=== PATIENT | male | born 1950 | race African-American/Black ===

== ENCOUNTER 2022-01-20 21:04 | Emergency (ER) | payer MEDICARE, OTHER ==
[2022-01-20 21:15] LABS: #Basophils 0.1 thou/uL (0.0-0.2); #Eosinphils 0.1 thou/uL (0.0-0.7); #Monocytes 0.6 thou/uL (0.11-0.59); #Neutrophils 3.2 thou/uL (1.40-6.50); %Basophils 1.4 % (0.0-1.0); %Eosinophils 1.6 % (0.0-10.0); %Lymphocytes 33.1 % (21.0-51.0); %Monocytes 9.5 % (0.0-10.0); %Neutrophils 54.4 % (42.0-75.0); Hemoglobin 13.1 g/dL (14.0-18.0); Mean Corpuscular HGB CONC 32.4 g/dL (32.0-36.0); Mean Corpuscular Hemoglobin 32.6 pg (27.0-31.0); Mean Platelet Volume 7.4 fL (7.4-10.4); Platelet Count 222 10x3/uL (130-400); RBC Distribution Width 13.3 % (11.5-14.5); Red Blood Cell (RBC) Count 4.01 mill/uL (4.70-6.10)
[2022-01-20 21:24] LABS: Prothrombin Time 13.5 sec (12.0-14.7)
[2022-01-20 21:25] LABS: PTT 30.8 sec (22.9-36.1)
[2022-01-20 21:31] LABS: ALT (SGPT) 20 U/L (8-55); AST (SGOT) 30 U/L (5-34); Albumin 4.2 g/dL (3.4-4.8); Alkaline Phosphatase 105 U/L (40-110); Anion Gap 19 mmol/L (10-20); BUN (Urea Nitrogen) 42 mg/dL (8.4-25.7); Bilirubin, Total 0.2 mg/dL (0.2-1.2); Calc. Creatinine Clearance 0 mL/min (70-130); Calcium 9.3 mg/dL (7.8-10.44); Carbon Dioxide 17 mmol/L (23-31); Chloride 107 mmol/L (98-107); Estimated GFR 18; Globulin 3.8 g/dL (2.4-3.5); Glucose 87 mg/dL (83-110); Potassium 3.9 mmol/L (3.5-5.1); Sodium 139 mmol/L (136-145)
[2022-01-20 21:55] LABS: CKMB 11.6 ng/mL (0-6.6)
== END 2022-01-20 21:42 | disposition short-term general hospital (02) ==
LOC: NAV ERS 21:04
DX: I21.19 ST elevation (STEMI) myocardial infarction involving other coronary artery of inferior wall (principal); E11.9 Type 2 diabetes mellitus without complications; I10 Essential (primary) hypertension; Z86.73 Personal history of transient ischemic attack (TIA), and cerebral infarction without residual deficits
CPT/HCPCS: 36415; 71045; 80053; 80307; 82553; 83880; 84484; 85025; 85610; 85730; 93005; 94760; 96365; 96374; 96375

== ENCOUNTER 2022-02-16 15:57 | Inpatient (IN) | payer MEDICARE, MEDICAID ==
[2022-02-17] MEDS ORDERED: Ondansetron ODT 4 MG TAB SL PRN (13:09)
[2022-02-17] MEDS ORDERED: Mag-Al Plus 1200 MG/1200 MG/120 MG/30 ML UDCUP PO PRN (13:20)
[2022-02-17 17:15] LABS: SARS-CoV-2 NAA Rapid Test Not Detected (NotDetected)
[2022-02-17] MEDS: Carvedilol 6.25 MG TAB PO SCH (17:38)
[2022-02-17] MEDS ORDERED: Albuterol Sulfate 2.5 mg/3 ml Neb NEB SCH (19:00)
[2022-02-17] MEDS: Diltiazem HCl SR 90 mg Capsule PO SCH (20:48)
[2022-02-17] MEDS: Amitriptyline HCl 25 MG TAB PO SCH (20:50)
[2022-02-17] MEDS: Apixaban 5 MG TAB PO SCH (20:50)
[2022-02-17] MEDS: Atorvastatin Calcium 40 MG TAB PO SCH (20:51)
[2022-02-17] MEDS: Amiodarone 200 MG TAB PO SCH (20:51)
[2022-02-17] MEDS ORDERED: Famotidine 20 MG TAB PO SCH (21:00)
[2022-02-17] MEDS: Albuterol Sulfate 2.5 mg/3 ml Neb NEB SCH (23:50)
[2022-02-18] MEDS: Albuterol Sulfate 2.5 mg/3 ml Neb NEB SCH ×4 (05:18→23:17)
[2022-02-18 06:12] LABS: #Basophils 0.1 thou/uL (0.0-0.2); #Eosinphils 0.2 thou/uL (0.0-0.7); #Lymphocytes 0.8 thou/uL (1.20-3.40); #Monocytes 0.5 thou/uL (0.11-0.59); #Neutrophils 3.2 thou/uL (1.40-6.50); %Basophils 1.6 % (0.0-1.0); %Eosinophils 3.6 % (0.0-10.0); %Lymphocytes 15.9 % (21.0-51.0); %Neutrophils 67.9 % (42.0-75.0); Hemoglobin 7.5 g/dL (14.0-18.0); Mean Corpuscular HGB CONC 30.5 g/dL (32.0-36.0); Mean Corpuscular Volume 98.4 fl (78.0-98.0); Mean Platelet Volume 6.2 fL (7.4-10.4); Platelet Count 452 10x3/uL (130-400); RBC Distribution Width 14.9 % (11.5-14.5); Red Blood Cell (RBC) Count 2.49 mill/uL (4.70-6.10); White Blood Cell (WBC) Count 4.8 10x3/uL (4.8-10.8)
[2022-02-18 06:19] LABS: ALT (SGPT) Less than 6 U/L (8-55); AST (SGOT) 26 U/L (5-34); Albumin 2.8 g/dL (3.4-4.8); Alkaline Phosphatase 83 U/L (40-110); Anion Gap 15 mmol/L (10-20); BUN (Urea Nitrogen) 36 mg/dL (8.4-25.7); Bilirubin, Total 0.4 mg/dL (0.2-1.2); Calc. Creatinine Clearance 12 mL/min (70-130); Calcium 8.5 mg/dL (7.8-10.44); Carbon Dioxide 27 mmol/L (23-31); Chloride 97 mmol/L (98-107); Estimated GFR 7; Globulin 4.3 g/dL (2.4-3.5); Glucose 104 mg/dL (83-110); Protein, Total 7.1 g/dL (5.8-8.1); Sodium 135 mmol/L (136-145)
[2022-02-18] MEDS: Apixaban 5 MG TAB PO SCH ×2 (09:10→20:58)
[2022-02-18] MEDS: Ferrous Sulfate 325 MG TAB PO SCH (09:10)
[2022-02-18] MEDS: Tamsulosin HCl 0.4 MG CAP PO SCH (09:10)
[2022-02-18] MEDS: Aspirin Chewable 81 MG TAB PO SCH (09:10)
[2022-02-18] MEDS: Diltiazem HCl SR 90 mg Capsule PO SCH ×2 (09:11→20:59)
[2022-02-18] MEDS: Carvedilol 6.25 MG TAB PO SCH ×2 (09:11→20:56)
[2022-02-18] MEDS: Amiodarone 200 MG TAB PO SCH ×2 (09:11→20:58)
[2022-02-18] MEDS: Famotidine 20 MG TAB PO SCH (20:59)
[2022-02-18] MEDS: Atorvastatin Calcium 40 MG TAB PO SCH (20:59)
[2022-02-18] MEDS: Amitriptyline HCl 25 MG TAB PO SCH (21:02)
[2022-02-19 05:29] LABS: Hemoglobin 7.9 g/dL (14.0-18.0); Platelet Count 434 10x3/uL (130-400)
[2022-02-19] MEDS: Albuterol Sulfate 2.5 mg/3 ml Neb NEB SCH ×3 (05:58→17:36)
[2022-02-19] MEDS: Aspirin Chewable 81 MG TAB PO SCH (07:58)
[2022-02-19] MEDS: Tamsulosin HCl 0.4 MG CAP PO SCH (07:58)
[2022-02-19] MEDS: Diltiazem HCl SR 90 mg Capsule PO SCH ×2 (07:58→20:04)
[2022-02-19] MEDS: Apixaban 5 MG TAB PO SCH ×2 (07:58→20:05)
[2022-02-19] MEDS: Ferrous Sulfate 325 MG TAB PO SCH (07:58)
[2022-02-19] MEDS: Amiodarone 200 MG TAB PO SCH ×2 (07:58→20:05)
[2022-02-19] MEDS: Carvedilol 6.25 MG TAB PO SCH ×2 (07:58→16:40)
[2022-02-19] MEDS: guaiFENesin ER 600 MG TAB PO PRN (09:13)
[2022-02-19] MEDS: Atorvastatin Calcium 40 MG TAB PO SCH (20:05)
[2022-02-19] MEDS: Famotidine 20 MG TAB PO SCH (20:05)
[2022-02-19] MEDS: Amitriptyline HCl 25 MG TAB PO SCH (20:05)
[2022-02-20] MEDS: Albuterol Sulfate 2.5 mg/3 ml Neb NEB SCH ×5 (00:19→23:48)
[2022-02-20] MEDS ORDERED: EPOETIN ALFA-EPBX (ESRD) 10,000 UNIT/ML VIAL SC SCH (08:00)
[2022-02-20] MEDS: Aspirin Chewable 81 MG TAB PO SCH (08:03)
[2022-02-20] MEDS: Tamsulosin HCl 0.4 MG CAP PO SCH (08:03)
[2022-02-20] MEDS: Carvedilol 6.25 MG TAB PO SCH ×2 (08:03→17:01)
[2022-02-20] MEDS: Amiodarone 200 MG TAB PO SCH ×2 (08:03→21:11)
[2022-02-20] MEDS: Senokot S 8.6-50 MG TAB PO PRN ×2 (08:04→21:11)
[2022-02-20] MEDS: Diltiazem HCl SR 90 mg Capsule PO SCH ×2 (08:04→21:15)
[2022-02-20] MEDS: Ferrous Sulfate 325 MG TAB PO SCH (08:04)
[2022-02-20] MEDS: Apixaban 5 MG TAB PO SCH ×2 (08:04→21:12)
[2022-02-20] MEDS: EPOETIN ALFA-EPBX (NON-ESRD) 10,000 UNIT/ML VIAL SC SCH (08:06)
[2022-02-20] MEDS: Amitriptyline HCl 25 MG TAB PO SCH (21:11)
[2022-02-20] MEDS: Atorvastatin Calcium 40 MG TAB PO SCH (21:11)
[2022-02-20] MEDS: Famotidine 20 MG TAB PO SCH (21:12)
[2022-02-21] MEDS: Albuterol Sulfate 2.5 mg/3 ml Neb NEB SCH ×3 (05:18→17:51)
[2022-02-21] MEDS: Aspirin Chewable 81 MG TAB PO SCH (07:57)
[2022-02-21] MEDS: Tamsulosin HCl 0.4 MG CAP PO SCH (07:57)
[2022-02-21] MEDS: Diltiazem HCl SR 90 mg Capsule PO SCH ×2 (07:57→20:41)
[2022-02-21] MEDS: Carvedilol 6.25 MG TAB PO SCH ×2 (07:57→17:06)
[2022-02-21] MEDS: Bisacodyl 5 MG TAB PO PRN (07:57)
[2022-02-21] MEDS: Apixaban 5 MG TAB PO SCH ×2 (07:57→20:42)
[2022-02-21] MEDS: Ferrous Sulfate 325 MG TAB PO SCH (07:58)
[2022-02-21] MEDS: Amiodarone 200 MG TAB PO SCH ×2 (07:58→20:42)
[2022-02-21] MEDS: Amitriptyline HCl 25 MG TAB PO SCH (20:42)
[2022-02-21] MEDS: Famotidine 20 MG TAB PO SCH (20:42)
[2022-02-21] MEDS: Atorvastatin Calcium 40 MG TAB PO SCH (20:42)
[2022-02-22] MEDS: Albuterol Sulfate 2.5 mg/3 ml Neb NEB SCH ×5 (00:58→23:55)
[2022-02-22] MEDS: Ferrous Sulfate 325 MG TAB PO SCH (08:02)
[2022-02-22] MEDS: Tamsulosin HCl 0.4 MG CAP PO SCH (08:02)
[2022-02-22] MEDS: Amiodarone 200 MG TAB PO SCH ×2 (08:02→20:39)
[2022-02-22] MEDS: Diltiazem HCl SR 90 mg Capsule PO SCH ×2 (08:02→20:38)
[2022-02-22] MEDS: Aspirin Chewable 81 MG TAB PO SCH (08:03)
[2022-02-22] MEDS: Apixaban 5 MG TAB PO SCH ×2 (08:03→20:39)
[2022-02-22] MEDS: Carvedilol 6.25 MG TAB PO SCH ×2 (08:03→17:27)
[2022-02-22] MEDS: Acetaminophen 325 MG TAB PO PRN (09:48)
[2022-02-22] MEDS: Famotidine 20 MG TAB PO SCH (20:39)
[2022-02-22] MEDS: Atorvastatin Calcium 40 MG TAB PO SCH (20:39)
[2022-02-22] MEDS: Amitriptyline HCl 25 MG TAB PO SCH (20:39)
[2022-02-23] MEDS: Albuterol Sulfate 2.5 mg/3 ml Neb NEB SCH ×3 (05:26→16:21)
[2022-02-23] MEDS: Ferrous Sulfate 325 MG TAB PO SCH (08:11)
[2022-02-23] MEDS: Apixaban 5 MG TAB PO SCH ×2 (08:11→21:07)
[2022-02-23] MEDS: Diltiazem HCl SR 90 mg Capsule PO SCH ×3 (08:11→21:18)
[2022-02-23] MEDS: Aspirin Chewable 81 MG TAB PO SCH (08:11)
[2022-02-23] MEDS: Carvedilol 6.25 MG TAB PO SCH ×2 (08:12→16:20)
[2022-02-23] MEDS: Tamsulosin HCl 0.4 MG CAP PO SCH (08:12)
[2022-02-23] MEDS: Amiodarone 200 MG TAB PO SCH ×2 (08:12→21:07)
[2022-02-23] MEDS: Famotidine 20 MG TAB PO SCH (21:07)
[2022-02-23] MEDS: Amitriptyline HCl 25 MG TAB PO SCH (21:07)
[2022-02-23] MEDS: Atorvastatin Calcium 40 MG TAB PO SCH (21:07)
[2022-02-24] MEDS: Albuterol Sulfate 2.5 mg/3 ml Neb NEB SCH ×4 (00:40→17:54)
[2022-02-24] MEDS: Ferrous Sulfate 325 MG TAB PO SCH (08:52)
[2022-02-24] MEDS: Carvedilol 6.25 MG TAB PO SCH ×2 (08:52→17:53)
[2022-02-24] MEDS: Aspirin Chewable 81 MG TAB PO SCH (08:52)
[2022-02-24] MEDS: Tamsulosin HCl 0.4 MG CAP PO SCH (08:52)
[2022-02-24] MEDS: Amiodarone 200 MG TAB PO SCH ×2 (08:52→21:20)
[2022-02-24] MEDS: Apixaban 5 MG TAB PO SCH ×2 (08:52→21:20)
[2022-02-24] MEDS: Diltiazem HCl SR 90 mg Capsule PO SCH ×2 (08:54→21:20)
[2022-02-24] MEDS: Famotidine 20 MG TAB PO SCH (21:20)
[2022-02-24] MEDS: Atorvastatin Calcium 40 MG TAB PO SCH (21:20)
[2022-02-24] MEDS: Amitriptyline HCl 25 MG TAB PO SCH (21:20)
[2022-02-25] MEDS: Albuterol Sulfate 2.5 mg/3 ml Neb NEB SCH ×4 (00:01→19:10)
[2022-02-25] MEDS: Carvedilol 6.25 MG TAB PO SCH ×2 (08:25→19:09)
[2022-02-25] MEDS: Diltiazem HCl SR 90 mg Capsule PO SCH (08:26)
[2022-02-25] MEDS: Aspirin Chewable 81 MG TAB PO SCH (08:26)
[2022-02-25] MEDS: Tamsulosin HCl 0.4 MG CAP PO SCH (08:26)
[2022-02-25] MEDS: Amiodarone 200 MG TAB PO SCH ×2 (08:26→22:12)
[2022-02-25] MEDS: Ferrous Sulfate 325 MG TAB PO SCH (08:26)
[2022-02-25] MEDS: Apixaban 5 MG TAB PO SCH ×2 (08:26→22:12)
[2022-02-25] MEDS: Atorvastatin Calcium 40 MG TAB PO SCH (22:12)
[2022-02-25] MEDS: Famotidine 20 MG TAB PO SCH (22:12)
[2022-02-25] MEDS: Amitriptyline HCl 25 MG TAB PO SCH (22:12)
[2022-02-26] MEDS: Albuterol Sulfate 2.5 mg/3 ml Neb NEB SCH ×5 (00:45→23:51)
[2022-02-26] MEDS: Diltiazem HCl SR 90 mg Capsule PO SCH ×3 (00:52→21:06)
[2022-02-26 05:35] LABS: #Basophils 0.1 thou/uL (0.0-0.2); #Eosinphils 0.1 thou/uL (0.0-0.7); #Monocytes 0.6 thou/uL (0.11-0.59); #Neutrophils 3.2 thou/uL (1.40-6.50); %Basophils 1.3 % (0.0-1.0); %Eosinophils 1.2 % (0.0-10.0); %Lymphocytes 20.3 % (21.0-51.0); %Monocytes 12.2 % (0.0-10.0); Hemoglobin 6.9 g/dL (14.0-18.0); Mean Corpuscular HGB CONC 30.5 g/dL (32.0-36.0); Mean Corpuscular Hemoglobin 30.8 pg (27.0-31.0); Mean Platelet Volume 6.5 fL (7.4-10.4); Platelet Count 359 10x3/uL (130-400); RBC Distribution Width 16.6 % (11.5-14.5); Red Blood Cell (RBC) Count 2.25 mill/uL (4.70-6.10); White Blood Cell (WBC) Count 4.9 10x3/uL (4.8-10.8)
[2022-02-26 05:48] LABS: Anion Gap 16 mmol/L (10-20); BUN (Urea Nitrogen) 17 mg/dL (8.4-25.7); Calc. Creatinine Clearance 20 mL/min (70-130); Calcium 8.5 mg/dL (7.8-10.44); Carbon Dioxide 31 mmol/L (23-31); Chloride 96 mmol/L (98-107); Estimated GFR 12; Glucose 87 mg/dL (83-110); Potassium 3.6 mmol/L (3.5-5.1); Sodium 139 mmol/L (136-145)
[2022-02-26] MEDS: Ferrous Sulfate 325 MG TAB PO SCH (08:01)
[2022-02-26] MEDS: Apixaban 5 MG TAB PO SCH ×2 (08:01→21:06)
[2022-02-26] MEDS: Aspirin Chewable 81 MG TAB PO SCH (08:01)
[2022-02-26] MEDS: Tamsulosin HCl 0.4 MG CAP PO SCH (08:02)
[2022-02-26] MEDS: Amiodarone 200 MG TAB PO SCH ×2 (08:02→21:06)
[2022-02-26] MEDS: Carvedilol 6.25 MG TAB PO SCH ×2 (08:02→17:06)
[2022-02-26 18:19] LABS: Hemoglobin 7.7 g/dL (14.0-18.0)
[2022-02-26] MEDS: Atorvastatin Calcium 40 MG TAB PO SCH (21:06)
[2022-02-26] MEDS: Amitriptyline HCl 25 MG TAB PO SCH (21:06)
[2022-02-26] MEDS: Famotidine 20 MG TAB PO SCH (21:06)
[2022-02-27] MEDS: Albuterol Sulfate 2.5 mg/3 ml Neb NEB SCH ×4 (05:15→23:16)
[2022-02-27 05:56] LABS: Hemoglobin 7.8 g/dL (14.0-18.0); Platelet Count 319 10x3/uL (130-400)
[2022-02-27 06:03] LABS: Anion Gap 16 mmol/L (10-20); BUN (Urea Nitrogen) 28 mg/dL (8.4-25.7); Calc. Creatinine Clearance 14 mL/min (70-130); Calcium 8.5 mg/dL (7.8-10.44); Carbon Dioxide 29 mmol/L (23-31); Chloride 93 mmol/L (98-107); Estimated GFR 8; Glucose 94 mg/dL (83-110); Potassium 3.6 mmol/L (3.5-5.1); Sodium 134 mmol/L (136-145)
[2022-02-27] MEDS: Amiodarone 200 MG TAB PO SCH ×2 (08:08→22:01)
[2022-02-27] MEDS: Ferrous Sulfate 325 MG TAB PO SCH (08:09)
[2022-02-27] MEDS: Diltiazem HCl SR 90 mg Capsule PO SCH ×2 (08:09→22:01)
[2022-02-27] MEDS: Tamsulosin HCl 0.4 MG CAP PO SCH (08:09)
[2022-02-27] MEDS: Apixaban 5 MG TAB PO SCH ×2 (08:09→22:01)
[2022-02-27] MEDS: Aspirin Chewable 81 MG TAB PO SCH (08:09)
[2022-02-27] MEDS: Carvedilol 6.25 MG TAB PO SCH ×2 (08:09→17:28)
[2022-02-27] MEDS: EPOETIN ALFA-EPBX (NON-ESRD) 10,000 UNIT/ML VIAL SC SCH (13:13)
[2022-02-27] MEDS: Amitriptyline HCl 25 MG TAB PO SCH (22:00)
[2022-02-27] MEDS: Atorvastatin Calcium 40 MG TAB PO SCH (22:01)
[2022-02-27] MEDS: Famotidine 20 MG TAB PO SCH (22:01)
[2022-02-28] MEDS ORDERED: Albuterol Sulfate 2.5 mg/3 ml Neb NEB SCH (03:45)
[2022-02-28] MEDS: Albuterol Sulfate 2.5 mg/3 ml Neb NEB SCH ×3 (06:38→20:00)
[2022-02-28] MEDS: Carvedilol 6.25 MG TAB PO SCH ×2 (10:08→17:32)
[2022-02-28] MEDS: Tamsulosin HCl 0.4 MG CAP PO SCH (10:08)
[2022-02-28] MEDS: Apixaban 5 MG TAB PO SCH ×2 (10:08→21:39)
[2022-02-28] MEDS: Aspirin Chewable 81 MG TAB PO SCH (10:08)
[2022-02-28] MEDS: Diltiazem HCl SR 90 mg Capsule PO SCH ×2 (10:08→21:42)
[2022-02-28] MEDS: Ferrous Sulfate 325 MG TAB PO SCH (10:09)
[2022-02-28] MEDS: Amiodarone 200 MG TAB PO SCH ×2 (10:09→21:42)
[2022-02-28] MEDS: Atorvastatin Calcium 40 MG TAB PO SCH (21:39)
[2022-02-28] MEDS: Famotidine 20 MG TAB PO SCH (21:39)
[2022-02-28] MEDS: Amitriptyline HCl 25 MG TAB PO SCH (21:39)
[2022-02-28] MEDS: guaiFENesin ER 600 MG TAB PO PRN (21:39)
[2022-03-01] MEDS: Albuterol Sulfate 2.5 mg/3 ml Neb NEB SCH ×4 (00:04→17:28)
[2022-03-01] MEDS ORDERED: Albuterol Sulfate 2.5 mg/3 ml Neb NEB SCH (04:00)
[2022-03-01] MEDS: Senokot S 8.6-50 MG TAB PO PRN (04:40)
[2022-03-01] MEDS: Ferrous Sulfate 325 MG TAB PO SCH (07:50)
[2022-03-01] MEDS: Apixaban 5 MG TAB PO SCH ×2 (07:50→20:19)
[2022-03-01] MEDS: Amiodarone 200 MG TAB PO SCH ×2 (07:50→20:20)
[2022-03-01] MEDS: Tamsulosin HCl 0.4 MG CAP PO SCH (07:50)
[2022-03-01] MEDS: Carvedilol 6.25 MG TAB PO SCH ×2 (07:50→17:28)
[2022-03-01] MEDS: Aspirin Chewable 81 MG TAB PO SCH (07:50)
[2022-03-01] MEDS: Diltiazem HCl SR 90 mg Capsule PO SCH ×2 (07:51→20:19)
[2022-03-01] MEDS: Bisacodyl 5 MG TAB PO PRN (17:28)
[2022-03-01] MEDS ORDERED: Albuterol Sulfate 2.5 mg/3 ml Neb ONE (20:17)
[2022-03-01] MEDS ORDERED: Albuterol Sulfate 2.5 mg/3 ml Neb NEB PRN (20:19)
[2022-03-01] MEDS: Amitriptyline HCl 25 MG TAB PO SCH (20:20)
[2022-03-01] MEDS: Famotidine 20 MG TAB PO SCH (20:20)
[2022-03-01] MEDS: Atorvastatin Calcium 40 MG TAB PO SCH (20:20)
[2022-03-02] MEDS: Albuterol Sulfate 2.5 mg/3 ml Neb NEB SCH ×4 (00:15→18:22)
[2022-03-02 06:03] LABS: #Basophils 0.1 thou/uL (0.0-0.2); #Eosinphils 0.1 thou/uL (0.0-0.7); #Lymphocytes 0.9 thou/uL (1.20-3.40); #Monocytes 0.6 thou/uL (0.11-0.59); #Neutrophils 3.5 thou/uL (1.40-6.50); %Basophils 1.1 % (0.0-1.0); %Eosinophils 2.1 % (0.0-10.0); %Monocytes 10.9 % (0.0-10.0); %Neutrophils 68.9 % (42.0-75.0); Mean Corpuscular HGB CONC 30.7 g/dL (32.0-36.0); Mean Corpuscular Hemoglobin 30.7 pg (27.0-31.0); Mean Corpuscular Volume 99.9 fl (78.0-98.0); Mean Platelet Volume 6.5 fL (7.4-10.4); Platelet Count 254 10x3/uL (130-400); Red Blood Cell (RBC) Count 2.61 mill/uL (4.70-6.10); White Blood Cell (WBC) Count 5.1 10x3/uL (4.8-10.8)
[2022-03-02 06:17] LABS: Anion Gap 17 mmol/L (10-20); BUN (Urea Nitrogen) 32 mg/dL (8.4-25.7); Calc. Creatinine Clearance 14 mL/min (70-130); Calcium 8.3 mg/dL (7.8-10.44); Carbon Dioxide 28 mmol/L (23-31); Chloride 95 mmol/L (98-107); Estimated GFR 8; Glucose 86 mg/dL (83-110); Potassium 3.8 mmol/L (3.5-5.1); Sodium 136 mmol/L (136-145)
[2022-03-02] MEDS: Carvedilol 6.25 MG TAB PO SCH ×2 (07:52→18:22)
[2022-03-02] MEDS: Ferrous Sulfate 325 MG TAB PO SCH (07:52)
[2022-03-02] MEDS: Aspirin Chewable 81 MG TAB PO SCH (07:52)
[2022-03-02] MEDS: Diltiazem HCl SR 90 mg Capsule PO SCH ×2 (07:52→21:58)
[2022-03-02] MEDS: Tamsulosin HCl 0.4 MG CAP PO SCH (07:52)
[2022-03-02] MEDS: Apixaban 5 MG TAB PO SCH ×2 (07:52→21:58)
[2022-03-02] MEDS: Amiodarone 200 MG TAB PO SCH ×2 (07:53→21:58)
[2022-03-02] MEDS: Acetaminophen 325 MG TAB PO PRN (12:58)
[2022-03-02] MEDS ORDERED: cloNIDine 0.1 MG TAB PO PRN (20:31)
[2022-03-02] MEDS: predniSONE 20 MG TAB PO SCH (21:58)
[2022-03-02] MEDS: Atorvastatin Calcium 40 MG TAB PO SCH (21:58)
[2022-03-02] MEDS: Famotidine 20 MG TAB PO SCH (21:58)
[2022-03-02] MEDS: Amitriptyline HCl 25 MG TAB PO SCH (21:58)
[2022-03-03] MEDS: Albuterol Sulfate 2.5 mg/3 ml Neb NEB SCH ×4 (00:43→16:33)
[2022-03-03] MEDS: Carvedilol 6.25 MG TAB PO SCH ×2 (11:42→16:34)
[2022-03-03] MEDS: Diltiazem HCl SR 90 mg Capsule PO SCH ×2 (11:43→20:56)
[2022-03-03] MEDS: Ferrous Sulfate 325 MG TAB PO SCH (11:43)
[2022-03-03] MEDS: Aspirin Chewable 81 MG TAB PO SCH (11:43)
[2022-03-03] MEDS: predniSONE 20 MG TAB PO SCH ×2 (11:43→20:56)
[2022-03-03] MEDS: Amiodarone 200 MG TAB PO SCH ×2 (11:43→20:56)
[2022-03-03] MEDS: Apixaban 5 MG TAB PO SCH ×2 (11:43→20:56)
[2022-03-03] MEDS: Tamsulosin HCl 0.4 MG CAP PO SCH (11:44)
[2022-03-03] MEDS: Amitriptyline HCl 25 MG TAB PO SCH (20:56)
[2022-03-03] MEDS: Famotidine 20 MG TAB PO SCH (20:56)
[2022-03-03] MEDS: Atorvastatin Calcium 40 MG TAB PO SCH (20:56)
[2022-03-04] MEDS: Albuterol Sulfate 2.5 mg/3 ml Neb NEB SCH ×5 (00:06→23:38)
[2022-03-04] MEDS: Ferrous Sulfate 325 MG TAB PO SCH (08:48)
[2022-03-04] MEDS: Apixaban 5 MG TAB PO SCH ×2 (08:48→20:47)
[2022-03-04] MEDS: Tamsulosin HCl 0.4 MG CAP PO SCH (08:48)
[2022-03-04] MEDS: Carvedilol 6.25 MG TAB PO SCH ×2 (08:48→16:53)
[2022-03-04] MEDS: Aspirin Chewable 81 MG TAB PO SCH (08:48)
[2022-03-04] MEDS: predniSONE 20 MG TAB PO SCH ×2 (08:49→20:47)
[2022-03-04] MEDS: Diltiazem HCl SR 90 mg Capsule PO SCH ×2 (08:49→20:47)
[2022-03-04] MEDS: Amiodarone 200 MG TAB PO SCH ×2 (08:49→20:47)
[2022-03-04] MEDS: Famotidine 20 MG TAB PO SCH (20:47)
[2022-03-04] MEDS: Amitriptyline HCl 25 MG TAB PO SCH (20:47)
[2022-03-04] MEDS: Atorvastatin Calcium 40 MG TAB PO SCH (20:47)
[2022-03-05 05:44] LABS: #Lymphocytes 0.5 thou/uL (1.20-3.40); #Monocytes 0.3 thou/uL (0.11-0.59); #Neutrophils 2.3 thou/uL (1.40-6.50); %Basophils 0.5 % (0.0-1.0); %Lymphocytes 15.2 % (21.0-51.0); %Monocytes 10.6 % (0.0-10.0); %Neutrophils 73.7 % (42.0-75.0); Hemoglobin 8.2 g/dL (14.0-18.0); Mean Corpuscular HGB CONC 30.6 g/dL (32.0-36.0); Mean Corpuscular Hemoglobin 30.3 pg (27.0-31.0); Mean Platelet Volume 6.1 fL (7.4-10.4); Platelet Count 239 10x3/uL (130-400); RBC Distribution Width 17.1 % (11.5-14.5); Red Blood Cell (RBC) Count 2.71 mill/uL (4.70-6.10); White Blood Cell (WBC) Count 3.1 10x3/uL (4.8-10.8)
[2022-03-05] MEDS: Albuterol Sulfate 2.5 mg/3 ml Neb NEB SCH ×3 (05:51→18:27)
[2022-03-05 05:58] VITALS: BMI 30.6
[2022-03-05 06:01] LABS: Anion Gap 15 mmol/L (10-20); BUN (Urea Nitrogen) 25 mg/dL (8.4-25.7); Calc. Creatinine Clearance 20 mL/min (70-130); Calcium 8.6 mg/dL (7.8-10.44); Carbon Dioxide 31 mmol/L (23-31); Chloride 97 mmol/L (98-107); Estimated GFR 13; Glucose 104 mg/dL (83-110); Potassium 3.5 mmol/L (3.5-5.1); Sodium 139 mmol/L (136-145)
[2022-03-05] MEDS: Ferrous Sulfate 325 MG TAB PO SCH (08:24)
[2022-03-05] MEDS: Carvedilol 6.25 MG TAB PO SCH ×2 (08:24→16:58)
[2022-03-05] MEDS: Amiodarone 200 MG TAB PO SCH ×2 (08:26→20:40)
[2022-03-05] MEDS: Apixaban 5 MG TAB PO SCH ×2 (08:27→20:40)
[2022-03-05] MEDS: Diltiazem HCl SR 90 mg Capsule PO SCH ×2 (08:27→20:41)
[2022-03-05] MEDS: Aspirin Chewable 81 MG TAB PO SCH (08:27)
[2022-03-05] MEDS: predniSONE 20 MG TAB PO SCH ×2 (08:27→20:40)
[2022-03-05] MEDS: Tamsulosin HCl 0.4 MG CAP PO SCH (08:28)
[2022-03-05] MEDS ORDERED: Acetaminophen 325 MG TAB PO PRN (13:07)
[2022-03-05] MEDS: Atorvastatin Calcium 40 MG TAB PO SCH (20:40)
[2022-03-05] MEDS: Amitriptyline HCl 25 MG TAB PO SCH (20:40)
[2022-03-05] MEDS: Famotidine 20 MG TAB PO SCH (20:41)
[2022-03-06] MEDS: Albuterol Sulfate 2.5 mg/3 ml Neb NEB SCH ×2 (00:59→05:32)
[2022-03-06 07:28] VITALS: BP 146/80; TEMP 97.6
[2022-03-06] MEDS: Diltiazem HCl SR 90 mg Capsule PO SCH (07:54)
[2022-03-06] MEDS: Tamsulosin HCl 0.4 MG CAP PO SCH (07:54)
[2022-03-06] MEDS: Aspirin Chewable 81 MG TAB PO SCH (07:54)
[2022-03-06] MEDS: Ferrous Sulfate 325 MG TAB PO SCH (07:55)
[2022-03-06] MEDS: Carvedilol 6.25 MG TAB PO SCH (07:55)
[2022-03-06] MEDS: Apixaban 5 MG TAB PO SCH (07:56)
[2022-03-06] MEDS: predniSONE 20 MG TAB PO SCH (07:56)
[2022-03-06] MEDS: Amiodarone 200 MG TAB PO SCH (07:56)
[2022-03-06] MEDS: EPOETIN ALFA-EPBX (NON-ESRD) 10,000 UNIT/ML VIAL SC SCH (08:00)
== END 2022-03-06 10:35 | disposition home or self-care (01) | DRG 947 ==
LOC: NAV ACUTE 02-17 10:58
PROVIDERS: ADMIT Family Medicine; ATTEND Family Medicine
PROC: 30233N1 Transfusion of Nonautologous Red Blood Cells into Peripheral Vein, Percutaneous Approach (ICD-10-PCS; principal; 2022-02-26)
DX: R53.81 Other malaise (principal); N18.6 End stage renal disease; J90 Pleural effusion, not elsewhere classified; I13.2 Hypertensive heart and chronic kidney disease with heart failure and with stage 5 chronic kidney disease, or end stage renal disease; I50.32 Chronic diastolic (congestive) heart failure; I25.10 Atherosclerotic heart disease of native coronary artery without angina pectoris; H91.90 Unspecified hearing loss, unspecified ear; I48.91 Unspecified atrial fibrillation; N40.0 Benign prostatic hyperplasia without lower urinary tract symptoms; R53.1 Weakness; D63.1 Anemia in chronic kidney disease; Z20.822 Contact with and (suspected) exposure to COVID-19; G47.00 Insomnia, unspecified; Z82.49 Family history of ischemic heart disease and other diseases of the circulatory system; Z86.73 Personal history of transient ischemic attack (TIA), and cerebral infarction without residual deficits; Z98.890 Other specified postprocedural states; Z95.1 Presence of aortocoronary bypass graft; Z86.711 Personal history of pulmonary embolism; Z79.01 Long term (current) use of anticoagulants; I25.2 Old myocardial infarction; Z99.2 Dependence on renal dialysis
CPT/HCPCS: 36415; 36416; 36430; 71045; 80048; 80053; 85014; 85018; 85025; 85049; 86850; 86900; 86901; 87811; 94640; J7512; J7611; P9016; Q5106; U0002

== ENCOUNTER 2022-03-13 08:08 | Emergency (ER) | payer MEDICARE, MEDICAID ==
[2022-03-13] MEDS ORDERED: Acetaminophen 500 MG TAB ONE (09:20)
== END 2022-03-13 11:15 ==
LOC: NAV ERS 08:08
DX: S01.21XA Laceration without foreign body of nose, initial encounter (principal); I10 Essential (primary) hypertension; E11.9 Type 2 diabetes mellitus without complications; K21.9 Gastro-esophageal reflux disease without esophagitis; I48.91 Unspecified atrial fibrillation; D64.9 Anemia, unspecified; M19.90 Unspecified osteoarthritis, unspecified site; N17.9 Acute kidney failure, unspecified; W05.0XXA Fall from non-moving wheelchair, initial encounter; Y92.129 Unspecified place in nursing home as the place of occurrence of the external cause; Z95.5 Presence of coronary angioplasty implant and graft; Z99.2 Dependence on renal dialysis; Z79.01 Long term (current) use of anticoagulants; Z79.899 Other long term (current) drug therapy
CPT/HCPCS: 12011; 70450; 72125